=== PATIENT | female | born 1945 | race Caucasian/White ===

== ENCOUNTER 2018-03-02 12:20 | Outpatient (CLI) | payer MEDICARE ==
--- NOTE | 2018-03-02 13:24 | RAD ---
PA AND LATERAL CHEST: HISTORY: Dyspnea. COMPARISON: A 07/20/2017 CT examination as well as a CT of the chest that is dated 10/22/2017. FINDINGS: Heart size is enlarged. There are some chronic-appearing lung changes seen. Prominence to the right hilar region appears to be related to dilated pulmonary artery. There are also atelectatic changes in the right middle lobe. IMPRESSION: Essentially stable exam. POS: MATEUS[facility]
== END 2018-03-02 12:21 | disposition home or self-care (01) ==
LOC: RAD 12:20
PROVIDERS: ATTEND Internal Medicine Critical Care Medicine
DX: R06.00 Dyspnea, unspecified (principal)
CPT/HCPCS: 71046

== ENCOUNTER 2018-03-31 17:00 | Outpatient (CLI) | payer MEDICARE | END 2018-03-31 17:01 | disposition home or self-care (01) | LOC: SLEEPLAB 17:00 | PROVIDERS: ATTEND Internal Medicine Critical Care Medicine | DX: G47.33 Obstructive sleep apnea (adult) (pediatric) (principal); I10 Essential (primary) hypertension; J44.9 Chronic obstructive pulmonary disease, unspecified; E11.9 Type 2 diabetes mellitus without complications; R09.02 Hypoxemia | CPT/HCPCS: 95806 ==